=== PATIENT | female | born 1945 ===

== ENCOUNTER 2022-09-26 10:58 | Emergency (ER) | payer MEDICARE ==
--- NOTE | 2022-09-26 12:00 | NUR ---
[facility] WAS CONTACTED AT [id number]
[2022-09-26] MEDS ORDERED: calcium chloride 100 MG/1 ML inj IV ONE (13:00)
[2022-09-26] MEDS ORDERED: sodium bicarbonate (8.4%) 1 mEq/ml syringe ONE (13:00)
[2022-09-26] MEDS ORDERED: epiNEPHrine 0.1mg/ml 10ml syringe ONE (13:00)
[2022-09-26] MEDS ORDERED: LIDOcaine 2% (20 mg/ml) 5ml cardiac syringe ONE (13:00)
--- NOTE | 2022-09-26 14:10 | NUR ---
ARELY AND KATHIE WERE CONTACTED. FAMILY IS STILL AT BEDSIDE WILL CALL AGAIN AFTER FAMILY LEAVES.
--- NOTE | 2022-09-26 16:20 | NUR ---
[facility] WAS CONTACTED ELLY KHOURY REF ID # [id number]
--- NOTE | 2022-09-26 16:34 | NUR ---
[facility] WERE CONTACTED AGAIN FOR A PICKUP
--- NOTE | 2022-09-26 18:30 | NUR ---
[facility] ON WAY CALLED AGAIN, ANSWERING SERVICE STATED THAT THEY WOULD CONTACT HOME IMMEDIATELY
[2022-09-26 18:38] VITALS: BP 0/0
== END 2022-09-26 18:40 ==
LOC: ER 10:59
DX: I46.9 Cardiac arrest, cause unspecified (principal)
CPT/HCPCS: 31500; 92950; 99291; C1751; J0171; J3490